=== PATIENT | female | born 1970 | race African-American/Black ===

== ENCOUNTER 2018-12-15 08:59 | Observation (INO) ==
[2018-12-15 09:51] LABS: Basophils # 0.1 10*3/uL (0.0-0.2); Eosinophils # 0.2 10*3/uL (0.0-0.87); Eosinophils % 2.3 % (0.00-10.9); Hematocrit 40.1 VOL% (35.7-47.0); Hemoglobin 13.5 GM/DL (12.0-16.0); Immature Granulocytes % 0.1 %; Immature Granulocytes Absolute 0.01 #; Lymphocytes # 2.3 10*3/uL (1.4-4.0); Lymphocytes % 33.5 % (21.3-54.2); Mean Corpuscular HGB Conc 33.7 GM/DL (32-36); Mean Corpuscular Volume 87.2 FL (87-102); Mean Platelet Volume 9.2 FL (9.6-12.0); Monocytes % 7.2 % (1.7-12.7); Neutrophils % 55.9 % (38.7-73.9); Platelet Count 275 T/CUMM (130-400); Red Cell Distribution Width 14.3 % (9.3-17.3); White Blood Count 6.9 T/CUMM (4-12)
[2018-12-15 09:59] LABS: PT Patient Result 10.4 SECS (9.6-12.2); Partial Thromboplastin Time 27.8 SECS (20.8-36.0)
[2018-12-15 10:13] LABS: Albumin 3.9 G/DL (3.4-5.0); Bilirubin,Total 0.4 MG/DL (0.2-1.0); Calcium 9.6 MG/DL (8.5-10.1); Osmolality,Calculated 280.4 MOS/KG (273-304); Total Protein 8.8 G/DL (6.4-8.3)
[2018-12-15] MEDS ORDERED: ONDANSETRON 4 MG/2 ML VIAL IV PRN (16:52)
[2018-12-15] MEDS ORDERED: ACETAMINOPHEN 325 MG TABLET PO PRN (16:52)
[2018-12-15] MEDS: DOCUSATE SODIUM 100 MG CAPSULE PO SCH (20:38)
[2018-12-16] MEDS ORDERED: PANTOPRAZOLE 40 MG TABLET PO SCH (09:00)
[2018-12-16] MEDS ORDERED: FOLIC ACID 1 MG TABLET PO SCH (09:00)
[2018-12-16] MEDS ORDERED: amLODIPine 10 MG TABLET PO SCH (09:00)
[2018-12-16] MEDS ORDERED: LOSARTAN/HCTZ 50-12.5 MG TABLET PO SCH (09:00)
[2018-12-16] MEDS: DOCUSATE SODIUM 100 MG CAPSULE PO SCH (09:04)
[2018-12-16 12:26] VITALS: BP 126/80
[2018-12-19] MEDS ORDERED: METHOTREXATE 2.5 MG TABLET PO SCH (16:01)
== END 2018-12-16 13:15 | disposition home or self-care (01) ==
LOC: N.ED 08:59 → N.EDINP 08:59 → N.TELES 17:11
PROVIDERS: ADMIT Family Medicine; ATTEND Family Medicine